=== PATIENT | male | born 1955 | race Caucasian/White ===

== ENCOUNTER 2016-09-30 11:25 | Emergency (ER) ==
[2016-09-30 11:37] VITALS: BP 165/84
--- NOTE | 2016-09-30 12:17 | PROVIDER DOCUMENTATION ---
HPI-Musculoskeletal Pain/Inj - GENERAL Source: patient - HX OF PRESENT ILLNESS-MUSKULOSKELTAL Quality of Pain: reports: sharp Severity in ED: mild Onset/Duration: last night (8) Timing: still present, intermittent Modifying Factors: improves with: other (bending over improves pain) Any recent injury?: No Locality of Occurance: Work Similar Symptoms Previously?: Yes Recently seen or treated by another doctor?: No - BACK & NECK PAIN/INJURY Back/Neck Pain Location: reports: lumbar spine (R) Back/Neck Pain Radiation: reports: Upper Legs (R) Context / Method of Injury: reports: unknown Associated Symptoms: reports: lower back pain, weakness in legs/feet (R). denies: loss of bladder control, loss of bowel control, fever, muscle spasms, numbness in legs/feet, numbness in upper ext, sensory/motor loss, tingling in legs/feet, tingling in upper ext, weakness in upper ext <Nichol Sutton - Last Filed: 09/30/16 12:03> <Maggie Cueto - Last Filed: 09/30/16 12:42> - GENERAL Chief Complaint: Back Pain Stated Complaint: BCK PAIN Time Seen by Provider: 09/30/16 11:47 - HX OF PRESENT ILLNESS-MUSKULOSKELTAL Nature of Presenting Problem: Pt is 61 y/o M presents to the ED with R lower back pain. Pt denies injury. Pt states pain started at 8 o'clock last night. Pt states he was at work and pain increased and he had to leave work. Pt states having a normal BM. Pt denies bladder and bowel incont. Pt states almost passing out walking up the stairs when raising R leg. (Nichol Sutton) Review of Systems - Adult - REVIEW OF SYSTEMS - ADULT Constitutional: reports: no symptoms reported Eyes: reports: no symptoms reported Ears, Nose, Mouth & Throat: reports: no symptoms reported Cardiovascular: reports: no symptoms reported Respiratory: reports: no symptoms reported Gastrointestinal: reports: no symptoms reported Genitourinary: reports: no symptoms reported Musculoskeletal: reports: back pain (R lower), other (R leg). denies: bone pain , joint pain, neck pain Integumentary: reports: no symptoms reported Neurological: reports: no symptoms reported Psychiatric: reports: no symptoms reported Endocrine: reports: no symptoms reported Hematologic/Lymphatic: reports: no symptoms reported Allergic/Immunologic: reports: no symptoms reported All Other Systems: Reviewed and Negative <Nichol Sutton - Last Filed: 09/30/16 12:03> Past History - Adult - PAST MEDICAL HISTORY-ADULT Review of Records: reports: Nursing Assessment Review, Medications Reviewed, Social history reviewed & non-contributory. Major Childhood Illnesses: reports: denies history Cardiovascular: reports: denies history Respiratory: reports: denies history Gastrointestinal: reports: denies history Obstetrical/Gynecological: reports: denies history Genitourinary: reports: denies history Musculoskeletal: reports: denies history Neurological: reports: denies history Endocrine/Immune: reports: denies history Other Conditions: reports: denies history - PRIOR SURGERIES/PROCEDURES Surgical/Procedure History: reports: appendectomy - IMMUNIZATION STATUS Childhood Immunizations: See Nurse Assessment Flu Vaccine: See Nurse Assessment - FAMILY HISTORY Family History: reviewed, not pertinent - SOCIAL HISTORY Smoking: denies Substance Use: denies Living Situation: family <Nichol Sutton - Last Filed: 09/30/16 12:03> Physical Exam-Injury Related - Physical Exam-Injury Related Initial Vital Signs Reviewed: Yes General Appearance: appears well, alert, no apparent distress Eyes: PERRL/EOMI, pink conjunctivae, fundi clear, no AV nicking Head, Ears, Nose, Mouth & Throat: normocephalic/atraumatic, moist mucous membranes, normal ENT inspection, TMs normal, pharynx normal Neck: non-tender, full range of motion, supple, normal inspection Respiratory: chest non-tender, lungs clear, normal breath sounds, no pleuratic chest pain, no respiratory distress, no accessory muscle use Cardiovascular: normal peripheral pulses, regular rate, rhythm, no edema, no gallop, no JVD, no murmur Abdominal Exam: normal bowel sounds, non tender, soft, no organomegaly, no pulsatile mass Lymphatic: no adenopathy Back Exam: no CVA tenderness, no vertebral tenderness Extremity: normal range of motion, non-tender, normal gait, no pedal edema, no calf tenderness, normal capillary refill, other (positive SLT on R) Integumentary: normal color, warm/dry Neurologic: grossly normal Psych/Mental Status: normal mood/affect, oriented x 3 <Nichol Sutton - Last Filed: 09/30/16 12:03> Progress <Nichol Sutton - Last Filed: 09/30/16 12:03> - XRAY 1 XRAY: Bilateral XRAY Study: Lumbar Spine Impression: Normal (NAD reviewed c Dr. Howard) <Maggie Cueto - Last Filed: 09/30/16 12:42> - PLAN OF CARE/RESULTS Progress/Plan/Lab Results: Orders Category Date Time Status LUMBAR SPINE [RAD] Stat Exams 09/30/16 11:47 Ordered Vital Signs - 24 hr 09/30/16 11:33 Temperature 97.9 F Pulse Rate 86 Respiratory 18 Rate Blood Pressure 165/84 O2 Sat by Pulse 100 Oximetry (Nichol Sutton) Vital Signs Temp Pulse Resp BP Pulse Ox 09/30/16 11:33 97.9 F 86 18 165/84 100 No Known Allergies Allergy (Verified 09/30/16 11:37) Escitalopram [Lexapro] 10 mg 09/30/16 Orders Category Date Time Status LUMBAR SPINE [RAD] Stat Exams 09/30/16 11:47 Taken Cyclobenzaprine [Flexeril] Med 09/30/16 12:25 Discontinued 10 mg PO NOW ONE Hydrocodone/APAP 5 mg/325 mg [[place]-5] Med 09/30/16 12:25 Discontinued 1 each PO NOW ONE (Maggie Cueto) Departure <Nichol Sutton - Last Filed: 09/30/16 12:03> - Departure Time of Disposition Order: 12:41 Certified Medical Emergency: Emergent <Maggie Cueto - Last Filed: 09/30/16 12:42> - Departure DIAGNOSIS: Lumbar paraspinal muscle spasm, Right sciatic nerve pain Disposition: HOME 01 Condition: Stable Additional Instructions: Follow up with your primary care physician if you continue having pain ED Follow Up Instructions: You have been treated by a care provider in the Emergency Department. These instructions are being provided to you so you can have an understanding of how to care for yourself upon discharge. Upon discharge from the Emergency Department, you are responsible for making arrangements for follow-up care by a physician of your choice. Take all prescribed medications as directed. Return to the Emergency Department immediately for any new or worsening symptoms. You may call the Physician Referral phone number at [phone] to obtain a list of Physicians who are taking new patients. Prescriptions: Cyclobenzaprine [Flexeril] 10 mg PO TID #20 tablet Famotidine [Pepcid] 20 mg PO DAILY #20 tablet Ketorolac [Toradol] 10 mg PO Q6H PRN PRN #20 tablet PRN Reason: Pain Referrals: Gopal Sosa MD [Primary Care Provider] - Attestation - Scribe Verification/Attestation Scribe:: Nichol Sutton Acting as Scribe for:: Maggie Cueto Scribe documention review:: This chart was documented by a scribe and accurately reflects the service the provider performed and the decisions made by the provider. <Nichol Sutton - Last Filed: 09/30/16 12:03> Physician Attestation
[2016-09-30] MEDS ORDERED: NORCO-5 PO ONE (12:25)
[2016-09-30] MEDS ORDERED: FLEXERIL PO ONE (12:25)
--- NOTE | 2016-09-30 15:44 | Diag Imaging Result Document ---
PROCEDURE NAME: LUMBAR SPINE - 09/30/2016 PLAIN RADIOGRAPH OF THE LUMBAR SPINE 6 VIEWS: COMPARISON: None available. FINDINGS: There is degenerative disk disease at L5-S1 with loss of disk space height and marginal osteophyte formation. The intervertebral disk spaces and vertebral body heights are preserved, otherwise. There is no definite fracture, subluxation, or intrinsic osseous lesion, otherwise. IMPRESSION: Degenerative disk disease at L5-S1 as described.
== END 2016-09-30 13:05 | disposition home or self-care (01) ==
LOC: P.ED 11:25
DX: M62.830 Muscle spasm of back (principal); M54.31 Sciatica, right side; M54.5 Low back pain; M79.651 Pain in right thigh; M62.81 Muscle weakness (generalized)
CPT/HCPCS: 72110; 99283

== ENCOUNTER 2019-08-23 00:57 | Observation (INO) ==
--- NOTE | 2019-08-23 01:20 | PROVIDER DOCUMENTATION ---
HPI-Syncope/Dizziness - General Chief Complaint: Syncope Stated Complaint: syncope Time Seen by Provider: 08/23/19 01:07 Source: patient Allergies/Adverse Reactions: Patient Allergies Allergy/AdvReac Type Severity Reaction Status Date / Time No Known Allergies Allergy Verified 08/23/19 01:42 Home Medications: Home Medication List Medication Instructions Recorded Confirmed Last Taken Type Escitalopram [Lexapro] 10 mg PO DAILY 09/30/16 08/23/19 09/30/16 History Clonazepam 1 mg PO BID 08/23/19 08/23/19 Unknown History Meloxicam 15 mg PO DAILY 08/23/19 08/23/19 Unknown History - History of Present Illness-Syncope/Dizzy Nature of Presenting Problem: 64 year old male presenting to the emergency department after having an episode of 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 All he remembers was laying down about to go to sleep and the next thing he remembers was waking up on the side of his bed to his asking him why he was laying on the floor. He endorses having a couple glasses of wine with dinner earlier tonight. Per EMS the patient was unable to stand from the floor and had dysarthria upon arrival which has since resolved upon arrival to the emergency department. If witnessed syncope, by whom?: Spouse Review of Systems - Adult - REVIEW OF SYSTEMS - ADULT ROS:: limited per condition Constitutional: reports: no symptoms reported Eyes: reports: no symptoms reported Ears, Nose, Mouth & Throat: reports: no symptoms reported Cardiovascular: reports: no symptoms reported Respiratory: reports: no symptoms reported Gastrointestinal: reports: no symptoms reported Genitourinary: reports: no symptoms reported Musculoskeletal: reports: no symptoms reported Integumentary: reports: no symptoms reported Neurological: reports: slurred speech (now resolved) Psychiatric: reports: no symptoms reported Endocrine: reports: no symptoms reported Hematologic/Lymphatic: reports: no symptoms reported Allergic/Immunologic: reports: no symptoms reported All Other Systems: Reviewed and Negative Past History - Adult - PAST MEDICAL HISTORY-ADULT Review of Records: reports: Old Records Reviewed, Nursing Assessment Review, Medications Reviewed, Social history reviewed & non-contributory. Major Childhood Illnesses: reports: denies history Cardiovascular: reports: denies history Respiratory: reports: denies history Gastrointestinal: reports: denies history Obstetrical/Gynecological: reports: denies history Genitourinary: reports: denies history Musculoskeletal: reports: denies history Neurological: reports: denies history Endocrine/Immune: reports: denies history Other Conditions: reports: denies history - PRIOR SURGERIES/PROCEDURES Surgical/Procedure History: reports: appendectomy - IMMUNIZATION STATUS Childhood Immunizations: See Nurse Assessment Flu Vaccine: See Nurse Assessment - FAMILY HISTORY Family History: reviewed, not pertinent - SOCIAL HISTORY Smoking: denies Substance Use: none/never Alcohol Use Frequency: 3-4 times a week Physical Exam-General - PHYSICAL EXAM-ADULT Initial Vital Signs Reviewed: Yes (Stable) - CONSTITUTIONAL General Appearance: appears well, alert, no apparent distress - EYES Eyes: other (pupils equally round and sluggishly reactive to light, horizontal nystagmus bilaterally) - HEAD, EARS, NOSE, MOUTH & THROAT HENMT: normocephalic/atraumatic, moist mucous membranes, TMs normal, pharynx normal - NECK Neck: other (C-collar applied upon arrival to the ED, cleared by CT imaging, no vertebral TTP, full ROM) - RESPIRATORY Respiratory: lungs clear, normal breath sounds, no respiratory distress - CARDIOVASCULAR Cardiovascular: normal peripheral pulses, regular rate, rhythm, no edema, no murmur - GASTROINTESTINAL (ABDOMEN) Abdominal Exam: normal bowel sounds, non tender, soft - MUSCULOSKELETAL Back Exam: normal inspection, no CVA tenderness, other (no step off deformaties) Extremity: normal range of motion, non-tender, normal gait, normal inspection, no pedal edema, no calf tenderness Peripheral Pulses: radial (R): 2+, radial (L): 2+ - SKIN Integumentary: warm/dry. negative: normal turgor (poor skin turgor) - NEUROLOGIC Neurologic: no motor/sensory deficits, other (horizontal nystagmus bilaterally, see NIHSS for more info on the patient's neuro exam. Patient does have amnesia to the event.) - PSYCHIATRIC Psych/Mental Status: normal mood/affect, normal thought process, oriented x 3, other (signs of intoxication while in the ED) Progress - PLAN OF CARE/RESULTS Progress/Plan/Lab Results: Vital Signs - 8 hr 08/23/19 01:25 Temperature 97.5 F L Pulse Rate 90 Respiratory Rate 16 Blood Pressure 142/98 O2 Sat by Pulse Oximetry 96 Laboratory Results - last 24 hr 08/23/19 01:25 PT 13.1 INR 0.98 PTT (Actin FS) 29.1 Orders Category Date Time Status Finger Stick Blood Sugar (ED) DIRECTED Care 08/23/19 01:10 Active Nursing- Obtain EKG ONCE Care 08/23/19 01:10 Active Saline Loc NOW Care 08/23/19 01:12 Active CHEST-1 VIEW [RAD] Stat Exams 08/23/19 01:[address] HEAD/C-SPINE W/O CONTRAST [CT] Stat Exams 08/23/19 01:12 Taken ALCOHOL BLOOD Stat Lab 08/23/19 01:25 Received CBC WITH ELECTRONIC DIFF [HEME] Stat Lab 08/23/19 01:25 Results COMPREHENSIVE METABOLIC PANEL [CHEM] Stat Lab 08/23/19 01:25 Received PROTIME WITH INR [COAG] Stat Lab 08/23/19 01:25 Completed PTT [COAG] Stat Lab 08/23/19 01:25 Completed TROPONIN T HIGH SENSITIVITY Stat Lab 08/23/19 01:25 Received URINALYSIS W/POSS RFLX CULT [URINALYSIS] Stat Lab 08/23/19 01:37 Ordered EKG [EKG] Stat Ther 08/23/19 01:10 Draft NEXUS Score: [address] [place] [address] Score: 1 ABCD2 Score: 4 Moderate risk Result Diagrams: 08/23/19 01:25 - EKG 1 Time of EKG reading by physician:: 02:09 EKG Read and Signed by:: Krista Alegre EKG Interpretation (*Must complete 3 of following elements*): Abnormal Rate: 82 Rhythm: sinus [place]: normal QRS: RBB (incomplete) NV Interval: normal ST Wave: non-specific ST changes (likely secondary to RBBB) Prior EKG Comparison: no prior EKG - XRAY 1 XRAY Study: Chest Impression: Normal (trachea is midline, heart appears to be normal in size, both costochondral angles are well visualized, no consolidation or infiltrates visualized, no fracture or bony abnormality. Impression: no acute cardiopulmonary process.) Comparison with other Films: no prior study - CT/MRI 1 CT Study: Head, Neck Impression: Normal Comparison with other Films: no prior study (no acute fracture or dislocation degenerative changes) - CONSULTS/PCP/HOSPITALIST Notification #1 *Consult/PCP/Hospitalist*: Dr. Polanco Time Discussed: 02:35 (Admit observation) Reason/Comments: TIA rule out CVA, alcohol intoxication, syncope of undetermined etiology Consult Disposition: Will see in ED Departure - Departure Date of Disposition Decision: 08/23/19 Time of Disposition Decision: 02:21 (Admit observation) DIAGNOSIS: Transient ischemic attack (TIA), Obesity (BMI 30.0-34.9), Syncope Alcohol intoxication Qualifiers: Complication of substance-induced condition: uncomplicated Qualified Code(s): F10.920 - Alcohol use, unspecified with intoxication, uncomplicated Disposition: ADMITTED INPATIENT 09 Certified Medical Emergency: Emergent Condition: Fair Referrals and Follow-Ups: Gopal Sosa MD [Primary Care Provider] - - Critical Care Note This patient required my direct & personal management of CC.: No Attestation - Physician/ LILIA Attestation Patient care was provided by Advanced Practice Provider:: No The physician spent face to face time with patient:: Yes Advanced Practice Provider documentation review:: Supervising physician onsite and consulted in the evaluation and care of this patient. The physician did have a face to face encounter with the patient. - NIH Stroke Scale NIH Type: Initial Evaluation Level of Consciousness: 0-Alert LOC Questions (ask month and age): 0-Answers Both Correctly LOC Commands (ask to open & close eyes;make a fist, let go): 0-Obeys Both Correctly Best Gaze (horizontal eye movement): 1-Partial Gaze Palsy (gaze is abnormal in one or both eyes) Visual (use finger movement, counting or visual threat): 0-No Visual Loss Facial Palsy (show teeth or raise eyebrows & close eyes tght: 0-Symmetrical Movement Motor Function-left arm: 0-Normal Motor Function-right arm: 0-Normal Motor Function-left le-Normal Motor Function-right le-Normal Limb Ataxia(kfdycc-zmfi-bbzorx, or heel to sotelo): 0-No Ataxia Sensory(pin prick to face,arms,trunk,legs-compare side/side): 0-No Ataxia Best Language(name item/read sentence.Ex-Down to Earth): 0-No Aphasia Dysarthria(Pt read words or say words Ex.Mama,Tip-Top,Thanks: 0-Normal Articulation Extinction and Inattention: 0-Normal NIH Total Score: 0 NIH Scale Untestable Comment: Nystagmus bilaterally Modified Wake Score Criteria: 1-no significant disability despite symptoms
[2019-08-23 01:41] LABS: INR 0.98; PROTIME 13.1 Seconds (11.0-16.0)
[2019-08-23 01:42] LABS: PTT 29.1 Seconds (22.3-41.8)
--- NOTE | 2019-08-23 01:54 | EKG Report ---
Test Performed on : 08/23/2019 01:11:42 AM Test Reason : CP Blood Pressure : / mmHG Vent. Rate : 082 BPM Atrial Rate : 082 BPM P-R Int : 158 ms QRS Dur : 114 ms QT Int : 384 ms P-R-T Axes : 033 069 004 degrees QTc Int : 448 ms Normal sinus rhythm. Possible Left atrial enlargement Incomplete right bundle branch block Borderline ECG No previous ECGs available Unconfirmed Result
[2019-08-23 02:24] LABS: BASO# 0.05 X1000 (0.0-0.2); BASO% 0.8 % (0.0-0.8); EOS% 3.1 % (0.0-10.0); HEMATOCRIT 49.1 % (42.0-52.0); HEMOGLOBIN 16.3 g/dL (14.0-18.0); IMM GRAN# 0.06 X1000 (0.0-0.04); IMM GRAN% 0.9 % (0.0-0.5); LYMPH# 1.68 X1000 (1.2-3.4); LYMPH% 25.8 % (20.5-51.1); MCH 32.9 PG (27-31); MCHC 33.2 g/dL (33-37); MCV 99.2 FL (81-99); MONO# 0.72 X1000 (0.11-0.59); MPV 9.8 FL (7.4-10.4); NEUT# 3.81 X1000 (1.4-6.5); NEUT% 58.4 % (42.2-75.2); PLT 276 X1000 (130-400); RBC 4.95 XMIL (4.7-6.1); RDW 13.1 % (11.5-14.5); WBC 6.52 X1000 (4.8-10.8)
[2019-08-23 02:35] LABS: AGAP 14; ALB/GLOB RATIO 1.4; ALBUMIN 4.2 g/dL (3.5-5.0); ALKALINE PHOSPHATASE 100 U/L (32-122); BUN 10 mg/dL (8-22); CALCIUM 9.1 mg/dL (8.8-10.2); CHLORIDE 100 mmol/L (98-107); COSMO 282; ESTIMATED GFR > 60; GLUCOSE 95 mg/dL (70-104); GOT 96 U/L (10-34); GPT 88 U/L (10-44); POTASSIUM 4.3 mmol/L (3.5-5.1); SODIUM 142 mmol/L (136-145); TCO2 28 mmol/L (25-35); TOTAL BILIRUBIN 0.31 mg/dL (0.20-1.00); TOTAL PROTEIN 7.2 g/dL (6.3-8.3)
[2019-08-23] MEDS ORDERED: THIAMINE IV ONE (02:55)
[2019-08-23] MEDS ORDERED: ASPIRIN PO ONE (02:55)
[2019-08-23] MEDS ORDERED: THIAMINE 200 MG in NS 50 ML IV ONE (03:00)
--- NOTE | 2019-08-23 04:14 | HISTORY AND PHYSICAL ---
REASON FOR ADMISSION: Generalized weakness and difficulty talking yesterday evening. HISTORY OF PRESENT ILLNESS: Mr. 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 His tried to get him up to the bed, but she noticed that he was pretty much almost weight. The patient was not confused, but his noticed that he had a hard time enunciating his words and he had slurred speech. EMS was called and they noticed that he was dysarthric. No facial asymmetry. No focal weakness. No numbness. No headaches or visual symptoms. Since he has been in the ER over the last hour or so, his symptoms have resolved. He says he feels much stronger today and his speech is clearer, per his . He did admit to drinking a few glasses of wine a few hours prior to this, but he says he was not intoxicated and his concurred. Otherwise, he denies any antecedent cardiorespiratory symptoms. No vomiting, diarrhea, bleeding from any orifice. No polyuria or polydipsia. REVIEW OF SYSTEMS: Twelve system was done. Positive findings per HPI. ALLERGIES: No known allergies. HOME MEDICATIONS: He is on Lexapro 10 mg daily, he is on Klonopin 1 mg b.i.d. He was recently started on Mobic a week ago because of his foot pain. REVIEW OF SYSTEMS: The patient's does state that he snores a lot at night, but patient denies any fecal or urinary incontinence or tongue bite. The denies any prior episodes of seizures or tremors. SOCIAL HISTORY: Drinks about 4 to 5 beers a day. Rare alcohol use. 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 , lives with . SURGICAL HISTORY: Vasectomy, appendectomy. FAMILY HISTORY: No cardiorespiratory illnesses. No cancer or diabetes. LAB WORK: Alcohol level was 354, this was taking 1:25, that is almost less than 2 hours ago. AST 96, ALT 88. PT, PTT is normal. CT head no acute intracranial process. The patient's white count 6000, H and H 16 MCV is 99, platelets 276,000. EKG: Normal sinus rhythm with right bundle branch block. No other blocks noted. No LV enlargement. Chest film shows poor inspiratory effort, good penetration, but no overt infiltrate or edema. PHYSICAL EXAMINATION: GENERAL: A middle-aged, man, no acute distress. Alert and oriented x3. Normal mood and affect. VITAL SIGNS: Blood pressure 140/90, heart rate 90, respirations 16, temperature is 97.5 degrees. GENERAL: The patient is alert and oriented to person, place, time with normal mood and affect. HEENT: Head is normocephalic and atraumatic. Cranial nerves 2-12 are grossly intact. No focal weakness. Eyes: Anicteric and not pale. He does have nystagmus in the horizontal plane, but this resolves after a few seconds. ENT: Oropharyngeal exam is grossly normal. NECK: Supple. No JVD or carotid bruit. No thyromegaly. CHEST: Clear to auscultation good air entry in both lung ware. CARDIOVASCULAR: 1st and 2nd heart sounds heard. No gallops, murmurs, rubs. Rhythm is regular. ABDOMEN: Full, soft, nontender. No organomegaly. Bowel sounds are normal. RECTAL: Deferred at this time. EXTREMITIES: Good distal pulse volumes, regular symmetrical. He has a tiny gash on the left plantar surface of his foot from when he tried to drag himself up and cut his foot against the bed. No tremors noted. NEURO: See above. Patient's strength is 5/5 in all extremities. SKIN: Intact. No breakdown, lesion, erythema, but see above. MUSCULOSKELETAL: Grossly normal. Joint swelling. ASSESSMENT: 1. Probable transient ischemic attack versus mild alcohol intoxication. 2. Hypertension. 3. Probable sleep apnea. 4. Anxiety disorder. 5. Alcoholic toxic, mild alcohol intoxication. PLAN: The patient's MCV and mild transaminase elevations suggest this patient may have signs of secondary effects of alcohol toxicity to bone marrow and liver. He and his did not endorse any histories of alcoholism. His lab blood level alcohol was 354 and this was taken 2 hours ago, but when I saw the patient he was totally lucid, his speech was not slurred. Being that alcohol tends to on average drop 20 mg/hour, I estimate his alcohol level may be closer to 400. However, I will work the patient up for possible stroke. Also, recommend sleep evaluation since his oropharynx when examined was on the small side and that can cause his snoring a lot at night. Stroke workup to include the usual rate imaging studies. We will screen him for diabetes. Check his lipid. Start on aspirin, statins in the interim. It is possible he could have 2 things ongoing, either TIA and simultaneous alcohol intoxication. I would expect someone who has slurred speech from alcohol intoxication, for his symptoms probably not to resolve like this, so his cerebrovascular issue needs to be resolved. An MRI would not only diagnose if the patient had a stroke, but will also be a good prognostication being that the patient has evidence of infarction. His prognosis will be worse than if he has no evidence of any infarctive or ischemic injury. cc: MD Gopal Hayes MD [facility]
[2019-08-23] MEDS ORDERED: TYLENOL PO PRN (04:19)
[2019-08-23] MEDS ORDERED: ZOFRAN IV PRN (04:19)
[2019-08-23] MEDS: LOVENOX SUBQ SCH (05:03)
[2019-08-23] MEDS: NS 1,000 ML IV SCH ×2 (05:25→12:22)
--- NOTE | 2019-08-23 07:06 | Diag Imaging Result Doc PS360 ---
EXAM: CHEST-1 VIEW 08/23/2019 HISTORY: Syncope with intoxication TECHNIQUE: AP sitting at 0154 COMMENT: The inspiration is suboptimal. There is no evidence of acute cardiac or pulmonary disease and no previous studies are available for comparison. IMPRESSION: No evidence of acute disease. Electronically signed by David Francisco 08/23/2019 7:03 AM
[2019-08-23 08:30] LABS: HEMOGLOBIN A1C 5.3 % (4.8-6.0)
--- NOTE | 2019-08-23 08:37 | Diag Imaging Result Doc PS360 ---
EXAM: CT HEAD/C-SPINE W/O CONTRAST 08/23/2019 HISTORY: Syncope, alcohol intoxication TECHNIQUE: This exam was performed using automated exposure control, adjustment of mA or kV according to patient size, and/or use of iterative reconstruction technique. COMMENT: There are no previous studies available for comparison. There is a focal periventricular lucency in the right frontal lobe. There is no associated mass effect and no evidence of bleed or abnormal fluid collection is present. There is mucosal thickening in both maxillary sinuses. There are no air-fluid levels. The calvarium is intact. Cervical spine: There is facet arthropathy bilaterally at multiple levels. There is some narrowing of the disc space at C5-6. No prevertebral soft tissue swelling fracture or subluxation is present. There is fairly severe degenerative change in the odontoid in the anterior atlantoaxial joint. No evidence of acute disease is present in the visualized portion of the chest. IMPRESSION: 1. Focal lucency in the right frontal lobe which may be due to previous ischemic change. Comparison with previous studies if available would be helpful in this regard. Further evaluation with MRI may be desirable if clinically indicated. 2. Degenerative changes without evidence of acute bony abnormality in the cervical spine. Electronically signed by David Francisco 08/23/2019 8:35 AM
[2019-08-23 08:53] LABS: PHOSPHORUS 4.1 mg/dL (2.7-4.5)
[2019-08-23] MEDS: KLONOPIN PO SCH ×2 (12:19→21:55)
[2019-08-23] MEDS: ASPIRIN PO SCH (12:20)
[2019-08-23] MEDS: LEXAPRO PO SCH (12:20)
--- NOTE | 2019-08-23 12:59 | ECHO REPORT ---
ORDER DATE: 08/23/2019 INTERPRETING PHYSICIAN: Dr. Toro Pineda. ECHOCARDIOGRAPHIC MEASUREMENTS: 1. Interventricular septum: 1.0 cm. 2. Left ventricular posterior wall: 1.0 cm. 3. Diastolic diameter: 4.9 cm. 4. Left atrium: 4.0 cm. 5. Aorta: 3.5 cm. SUMMARY OF THE 2-DIMENSIONAL IMAGIN. Mitral valve was normal. 2. Aortic valve leaflets are trileaflet. 3. Pulmonic valve was normal. There is trace pulmonary regurgitation. 4. There is mild mitral regurgitation. 5. Mild tricuspid regurgitation. Peak velocity across the tricuspid valve was less than 2 m/sec. 6. Peak velocity across the aortic valve less than 2 m/sec by Doppler studies. There is no aortic stenosis or regurgitation. 7. Normal left ventricular cavity size. Estimated ejection fraction of 65%. 8. There is no pericardial effusion or obvious intracardiac mass or thrombus seen. cc: MD Margarita Rodriguez MD
[2019-08-23] MEDS: ATIVAN IV PRN (17:41)
[2019-08-23 19:48] LABS: URINE SOURCE CLEAN CATCH
[2019-08-23 19:52] LABS: BILIRUBIN URINE NEGATIVE (NEGATIVE); BLOOD URINE NEGATIVE (NEGATIVE); COLOR YELLOW; GLUCOSE URINE NEGATIVE (NEGATIVE); KETONE URINE NEGATIVE (NEGATIVE); LEUKOCYTES URINE NEGATIVE (NEGATIVE); NITRITE URINE NEGATIVE (NEGATIVE); PROTEIN URINE NEGATIVE (NEGATIVE); SP GRAVITY URINE 1.012; TURBIDITY URINE CLEAR (CLEAR); UROBILINOGEN URINE NORMAL (NORMAL)
[2019-08-23 19:53] LABS: UR EPITHELIAL CELLS <10 /HPF (<10); URINE BACTERIA NEGATIVE /HPF; URINE RBC <10 /HPF (<10); URINE WBC <10 /HPF (<10)
[2019-08-23] MEDS ORDERED: LIPITOR PO SCH (21:00)
[2019-08-24] MEDS: LOVENOX SUBQ SCH (05:40)
[2019-08-24 08:59] LABS: AGAP 13; ALB/GLOB RATIO 1.5; ALBUMIN 3.8 g/dL (3.5-5.0); ALKALINE PHOSPHATASE 69 U/L (32-122); BUN 14 mg/dL (8-22); CALCIUM 8.6 mg/dL (8.8-10.2); CHLORIDE 103 mmol/L (98-107); COSMO 281; CREATININE 0.8 mg/dL (0.7-1.2); ESTIMATED GFR > 60; GLUCOSE 86 mg/dL (70-104); GOT 49 U/L (10-34); GPT 52 U/L (10-44); POTASSIUM 4.2 mmol/L (3.5-5.1); SODIUM 141 mmol/L (136-145); TCO2 25 mmol/L (25-35); TOTAL BILIRUBIN 1.36 mg/dL (0.20-1.00); TOTAL PROTEIN 6.4 g/dL (6.3-8.3)
[2019-08-24] MEDS: KLONOPIN PO SCH (09:06)
[2019-08-24] MEDS: LEXAPRO PO SCH (09:06)
[2019-08-24] MEDS: ASPIRIN PO SCH (09:06)
[2019-08-24] MEDS: ATIVAN IV PRN (09:10)
--- NOTE | 2019-08-24 10:17 | Diag Imaging Result Doc PS360 ---
MRI BRAIN W/WO CONTRAST - 08/24/2019 INDICATION: stroke COMPARISON: Head CT 08/23/2018 FINDINGS: There is no area of restricted diffusion. The ventricles and sulci are normal in size and contour. There is some focal periventricular white matter hyperintensity at the right frontal horn stable from the prior CT indicating chronic microvascular ischemia. No other area of substantial abnormal signal. No intracranial mass or hemorrhage. No abnormal contrast enhancement. The pituitary is atrophic. Otherwise midline structures are unremarkable. IMPRESSION: Mild chronic microvascular ischemia in the right frontal lobe. No acute abnormality. Electronically signed by Enmanuel Vazquez 08/24/2019 10:14 AM
--- NOTE | 2019-08-24 10:59 | Diag Imaging Result Doc PS360 ---
MRA BRAIN W/O CONTRAST - 08/24/2019 INDICATION: stroke TECHNIQUE: Noncontrast [id number] technique was used COMPARISON: None FINDINGS: The intracranial arteries are all patent and normal in caliber. There is no aneurysm or significant stenosis. There is origin of the right posterior cerebral artery which is a normal variant. IMPRESSION: Negative exam. Electronically signed by Enmanuel Vazquez 08/24/2019 10:56 AM
[2019-08-24 11:35] VITALS: BP 140/87
--- NOTE | 2019-08-24 14:18 | CONSULTATION ---
DATE OF CONSULTATION: 08/24/2019 CHIEF COMPLAINT: Generalized weakness. HISTORY OF PRESENT ILLNESS: This is a 64-year-old male who had an apparent syncopal episode at home. The patient was not confused but had a hard time enunciating his words with a slurred speech. Chest x-ray revealed suboptimal inspiration; no evidence of acute cardiac or pulmonary disease. MRI of the brain revealed mild, chronic microvascular ischemia in the right frontal lobe with no acute abnormality. REVIEW OF SYSTEMS: A 10-point review of systems was obtained and the pertinents are listed in the HPI, otherwise noncontributory. ALLERGIES: No known allergies. HOME MEDICATIONS: Please see home reconciliation list. SOCIAL HISTORY: Drinks about four to five beers a day. Rare other alcohol use. 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 . Lives with . SURGICAL HISTORY: Vasectomy and appendectomy. FAMILY HISTORY: No cardiorespiratory illnesses. No cancer or diabetes. LABORATORY DATA: White blood cell count 6, red blood cell count 4.95, hemoglobin 16.3, hematocrit 49.1. PT [*]. PTT 29.1. Sodium 142, potassium 4.3, chloride 100, carbon dioxide 28, BUN 10, creatinine 1.0, AST 96, ALT 88, calcium 9.1. DIAGNOSTIC DATA: As mentioned in the HPI. PHYSICAL EXAMINATION: General: This is a male lying in bed. is at bedside. Appears to have no acute distress at the present time. The patient is alert and oriented to person, place, and time. Vital Signs: Temperature 97.5, pulse rate 71, respiratory rate 18, blood pressure 140/87, O2 saturation 98%. HEENT: Head is atraumatic, normocephalic. Eyes anicteric with nystagmus in the horizontal plane. Neurologic: No focal weakness. Cranial nerves II-XII intact. Alert and oriented. Neck: Supple. No thyromegaly. Trachea midline. Chest: Clear to auscultation. Good air entry. Cardiovascular: S1, S2 auscultated. No gallops, murmurs, or rubs. Regular rhythm. Abdomen: Soft. Nontender. Bowel sounds normal in all four quadrants. Extremities: Good distal pulses without edema or cyanosis. Skin: Intact. No breakdown. ASSESSMENT AND PLAN: 1. Probable transient ischemic attack versus mild alcohol intoxication. 2. Hypertension. 3. Probable sleep apnea. Will schedule outpatient sleep test. 4. Anxiety disorder. Aware. 5. Alcohol intoxication, mild. Aware. TIME SPENT: [address] John did management and [id number] evaluation. RICHY Tucker, did scribing only. Thank you for the courtesy of this consult. Dictated by RICHY Tucker for Carter John MD cc: RICHY Tucker MD
--- NOTE | 2019-08-24 17:02 | PROVIDER PROGRESS NOTE ---
Progress Note Dr. John Progress Note/Pulmonary and or critical care We appreciated progress of care, Complications, change in diagnosis, and instructions to patient. Subjective: We note the level of consciousness, bed (chair) position, family presence (if any), level of lethargy, feeling of symptoms, and changes from baseline condition/symptom. Patient is lying in bed on room air with no acute distress noted. He states he is feeling totally fine now. When talking about BiPAP for sleep apnea, patient states there is no way to put that mask on me. He reports severe claustrophobia. Objective: Vital Signs: We reviewed EMR current values for Pulse rate, Blood pressure, Pulse rate, respiratory rate and Pulse oximetry. Also noted other values and trends if present (e.g. I/O, CVP). T 98.1, ND 60, RR 19, BP 162/93 and SaO2 98% on room air. Physical Examination: General: Lying in bed with no acute distress noted. HEENT: Normocephalic. Trachea midline. Mucosa pink and moist. Chest: Even and unlabored. Symmetrical excursion. Clear to auscultation bilaterally. CVS: Regular rate and rhythm with S1 and S2 appreciated. Abdomen: Soft. Non-tender. Non-distended. Normoactive bowel sounds in all 4 quadrants. Extremities: No pedal edema. No cyanosis. No clubbing. Dorsalis pedis 2+ bilaterally. Neuro: A/O x4. Speech fluent. Following commands. No weakness noted. Labs and Radiology: Reviewed available labs and radiology values available at time of EMR review. Laboratory Results 08/23/19 08/24/19 08/24/19 19:40 08:00 08:00 Sodium Potassium Chloride Carbon Dioxide Anion Gap BUN Creatinine Estimated GFR/1.73 m2 BUN/Creatinine Ratio Glucose Calculated Osmolality Calcium Total Bilirubin AST ALT Alkaline Phosphatase Total Protein Albumin Globulin Albumin/Globulin Ratio Triglycerides 103 Cholesterol 185 LDL Cholesterol Direct 124 VLDL Cholesterol, Calc 21 HDL Cholesterol 54 Coronary Risk Interp 3.00 TSH 2.87 Urine Source CLEAN CATCH Urine Color YELLOW Urine Turbidity CLEAR Urine pH 6.0 Ur Specific Pryor 1.012 Urine Protein NEGATIVE Ur Glucose (Stick) NEGATIVE Ur Ketones (Stick) NEGATIVE Urine Blood NEGATIVE Urine Nitrite NEGATIVE Urine Bilirubin NEGATIVE Urobilinogen Dipstick NORMAL Urine Leukocytes NEGATIVE Urine WBC (Auto) <10 Urine RBC (Auto) <10 U Epithel Cells (Auto) <10 Urine Bacteria (Auto) NEGATIVE 08/24/19 08:00 Sodium 141 Potassium 4.2 Chloride 103 Carbon Dioxide 25 Anion Gap 13 BUN 14 Creatinine 0.8 Estimated GFR/1.73 m2 > 60 BUN/Creatinine Ratio 18 Glucose 86 Calculated Osmolality 281 Calcium 8.6 L Total Bilirubin 1.36 H AST 49 H ALT 52 H Alkaline Phosphatase 69 Total Protein 6.4 Albumin 3.8 Globulin 2.6 Albumin/Globulin Ratio 1.5 Triglycerides Cholesterol LDL Cholesterol Direct VLDL Cholesterol, Calc HDL Cholesterol Coronary Risk Interp TSH Urine Source Urine Color Urine Turbidity Urine pH Ur Specific Pryor Urine Protein Ur Glucose (Stick) Ur Ketones (Stick) Urine Blood Urine Nitrite Urine Bilirubin Urobilinogen Dipstick Urine Leukocytes Urine WBC (Auto) Urine RBC (Auto) U Epithel Cells (Auto) Urine Bacteria (Auto) Assessment: Suspected sleep apnea. Probable transient ischemic attack. Mild alcohol intoxication. Anxiety disorder. Plan: Continue current treatment and supportive care per admitting and other teams on the case. Educate on the sleep apnea and the potential consequences without control. Recommend outpatient sleep study. Explain to the patient that there are different types of CPAP mask on the market besides the full facial mask. He may be able to find a one that he can tolerate. DVT prophylaxis. Discharge planning per Admitting MD. Input was appreciated from Admitting MD and other teams on the case.
--- NOTE | 2019-08-25 10:44 | DISCHARGE SUMMARY ---
ADMISSION DATE: 08/23/2019 DISCHARGE DATE: 08/24/2019 DISCHARGE DIAGNOSES: 1. Generalized weakness and difficulty talking, resolved. There is a possibility of transient ischemic attack versus alcohol intoxication. 2. Hypertension. 3. Possible sleep apnea. 4. Anxiety disorder. 5. Elevated liver function tests. PROCEDURES PERFORMED: 1. Chest x-ray, dated 08/23/2019, the impression is no evidence of acute disease. 2. Head and cervical CT spine, dated 08/23/2019, the impression is focal lucency in the right frontal lobe, which may be due to previous ischemic change. Degenerative changes without evidence of acute bony abnormality in the cervical spine. 3. Echocardiogram, dated 08/23/2019, ejection fraction 65%. No aortic stenosis or regurgitation. No pericardial effusion or intracardiac mass or thrombus seen. Trace pulmonary regurgitation, mild mitral regurgitation. 4. Brain MRA, dated 08/24/2019, the impression is negative exam. 5. Brain MRI, dated 08/24/2019, the impression is mild chronic microvascular ischemia in the right frontal lobe, no acute abnormality. HOSPITAL COURSE: A 64-year-old male who presented to the emergency department due to generalized weakness and difficulty talking. The day before of admission, apparently he awakened to find himself on the floor and was not able to greens picker himself up off the floor to the bed. His tried to get him up but it was really difficult for her. The patient was not confused, but the noticed that he had a hard time trying to talk, probably he had a slurred speech. EMS noticed that he was dysarthric. No facial asymmetry. No focal weakness. No numbness. No headache or visual symptoms. In the ER, his symptoms resolved, and he felt much stronger the day of admission on 08/23/2019 and his speech is clear per his . He did admit to drinking a few glasses of wine for a few hours prior to this, but he said he was not intoxicated and his concurred. He denies any cardiac or respiratory symptoms. No diarrhea. No vomiting. No bleeding. No polydipsia or polyuria. No chest pain. He was hospitalized. We gave him some IV fluids. As per the patient, he does not drink every single day, just once in a while. He does not know how much he drank before this problem. All the lab work basically was within normal limits except that his liver enzymes were elevated, but they were trending down, especially AST, ALT, and alkaline phosphatase. Echocardiogram did not show any abnormality or thrombus. Brain MRI showed a chronic microvascular ischemia on the right frontal lobe, but no acute issues. The patient walked with physical therapy and he was doing fine. He is completely awake, alert, and oriented x3. I will discharge this patient home with his home medications. I will not add any medication. I asked the patient to go to his primary care doctor to control better his blood pressure. I recommended to stop drinking completely as well. As per the patient, the clonazepam 1 mg twice a day as needed. PHYSICAL EXAMINATION: Vital Signs: Temperature 97.5 degrees, pulse 71, respiratory rate 18, blood pressure 140/87, oxygen saturation 98% on room air. HEENT: Head normocephalic, no trauma. PERRLA. Neck: Supple. No JVD. No masses. Central trachea. Chest: Clear to auscultation. No wheezing. No rales. Abdomen: Soft, nontender, nondistended. No hepatosplenomegaly. Extremities: No edema, no clubbing, no cyanosis. Neurological: The patient is awake and alert. He is oriented x3. No focal deficits. LABORATORY: Sodium 141, potassium 4.2, chloride 103, bicarbonate 25, BUN 14, creatinine 0.8, glucose 86, calcium 8.6. AST 49, ALT 52, alkaline phosphatase 69. DISCHARGE MEDICATIONS: 1. Clonazepam 1 mg p.o. b.i.d. as needed per the patient. 2. Lexapro 10 mg p.o. daily. 3. Meloxicam 15 mg p.o. daily. FOLLOWUP: The patient will follow up with his primary care doctor in 1 to 2 weeks. This has been explained to the patient and the family at the bedside. As per the patient, he has been under a lot of stress recently. He has been following up with his primary doctor, and he does not have any medication for the blood pressure listed on his medications. I told the patient that he needs to follow up with his doctor about this. Stop drinking alcohol completely as well. cc: Juan Piedra MD
== END 2019-08-24 13:43 | disposition home or self-care (01) ==
LOC: SUPCPDRO → ED 00:57 → SUATTDRO 00:58 → INTOOBSV 00:58 → 3N 03:44
PROVIDERS: ATTEND Internal Medicine